=== PATIENT | male | born 1935 | race Caucasian/White ===

== ENCOUNTER 2017-10-30 15:13 | Inpatient (IN) | END 2017-10-31 17:38 | disposition home or self-care (01) | DRG 313 ==

== ENCOUNTER 2018-05-26 06:43 | Day surgery (SDC) | END 2018-05-26 07:30 | disposition home or self-care (01) ==

== ENCOUNTER 2018-06-10 12:43 | Observation (INO) | END 2018-06-11 18:14 | disposition home or self-care (01) ==

== ENCOUNTER 2018-06-17 10:16 | Emergency (ER) | END 2018-06-17 13:35 | disposition home or self-care (01) ==

== ENCOUNTER 2019-06-15 07:01 | Observation (INO) | payer MEDICARE, OTHER ==
[~2019-06-15] VITALS: Ht 167.6 cm; Wt 95.2 kg
[2019-06-15] VITALS (24 sets, daily range): BP systolic 128–162; BP diastolic 72–87; PULSE 59–61; RESP 14–28; Ht 167.6 cm; Wt 95.2 kg
[~2019-06-15 07:01] MED LIST: AMLO5TAB4 PO; ASPI-903 PO; CARV25TA79 PO; CEFAZOLIN 1 GM/50 ML (PMX) 50 ML IVPB ONE; CEPH500C PO; DIAZEPAM 5 MG TAB PO ONE; FINA5TAB4 PO; HYDR-3671 PO; HYDR-4011 PO; ISOS120T15 PO; RANI300C7 PO; RANO500T2 PO; SOD CHLORIDE 0.45% 1,000 ML IV SCH; TAMS-14 PO; WARF5TAB PO
[2019-06-15] MEDS ORDERED: POLYMYXIN/BACITRACIN 1L IRRIG ONE (07:25)
[2019-06-15] MEDS ORDERED: BUPIVACAINE 0.5% (SDV) 30 ML INJ ONE (07:32)
[2019-06-15] MEDS ORDERED: IODIXANOL LOCM 50 ML BTL ONE (07:32)
[2019-06-15] MEDS ORDERED: LIDOCAINE 1%/EPI (1:100,000) (MDV) 20 ML ONE (07:32)
[2019-06-15] MEDS ORDERED: SOD CHLORIDE 0.9% 500 ML ONE (07:32)
[2019-06-15] MEDS ORDERED: CEFAZOLIN 1 GM/50 ML (PMX) 50 ML IVPB ONE ×2 (07:32→07:35)
[2019-06-15] MEDS ORDERED: FENTAnyl 50 MCG/ML VIAL ONE (08:56)
[2019-06-15] MEDS ORDERED: PROPOFOL 20 ML ONE (08:56)
[2019-06-15] MEDS ORDERED: MIDAZOLAM 1 MG/ML 2 ML INJ ONE (08:56)
[2019-06-15] MEDS ORDERED: DIPHENHYDRAMINE 50 MG INJ IV PRN (10:00)
[2019-06-15] MEDS ORDERED: ONDANSETRON 4 MG INJ IV PRN ×2 (10:00→12:30)
[2019-06-15] MEDS ORDERED: FENTAnyl 50 MCG/ML VIAL IV PRN ×3 (10:00)
[2019-06-15] MEDS ORDERED: MEPERIDINE 25 MG INJ IV PRN (10:00)
[2019-06-15] MEDS ORDERED: LABETALOL HCL 20MG INJ IV PRN (10:00)
[2019-06-15] MEDS ORDERED: hydrALAzine 20 MG INJ IV PRN (10:00)
[2019-06-15] MEDS ORDERED: EPHEDrine 25 MG/5 ML SYG IV PRN (10:00)
[2019-06-15] MEDS ORDERED: METOCLOPRAMIDE 10 MG INJ IV PRN (10:00)
[2019-06-15] MEDS ORDERED: MIDAZOLAM 1 MG/ML 2 ML INJ IV PRN (10:00)
[2019-06-15] MEDS ORDERED: morphine 2 MG INJ IV PRN (10:30)
[2019-06-15] MEDS ORDERED: HYDROCODONE/APAP (5/325) TAB PO PRN ×4 (10:30→12:30)
[2019-06-15] MEDS ORDERED: ACETAMINOPHEN 325 MG TAB PO PRN (12:30)
[2019-06-15] MEDS ORDERED: NACL 0.9% 3 ML SYG IV SCH (12:30)
[2019-06-15] MEDS: CEPHALEXIN 500 MG CAP PO SCH (17:53)
[2019-06-15] MEDS: CEFAZOLIN 1 GM/50 ML (PMX) 50 ML IVPB SCH (20:34)
[2019-06-15] MEDS: ISOSORBIDE MONONITRATE(SR)60 MG TAB PO SCH (20:35)
[2019-06-15] MEDS: RANOLAZINE (SR) 500 MG TAB PO SCH (20:35)
[2019-06-15] MEDS: TAMSULOSIN (SR) 0.4 MG CAP PO SCH (20:36)
[2019-06-16 00:05] VITALS: BP 132/71; PULSE 61; RESP 18
[2019-06-16] MEDS: CEPHALEXIN 500 MG CAP PO SCH ×3 (00:12→13:01)
[2019-06-16 07:37] VITALS: BP 143/70; PULSE 59; RESP 18
[2019-06-16] MEDS: ISOSORBIDE MONONITRATE(SR)60 MG TAB PO SCH (08:50)
[2019-06-16] MEDS: TAMSULOSIN (SR) 0.4 MG CAP PO SCH (08:50)
[2019-06-16] MEDS: RANOLAZINE (SR) 500 MG TAB PO SCH (08:51)
[2019-06-16] MEDS: CEFAZOLIN 1 GM/50 ML (PMX) 50 ML IVPB SCH (08:52)
[2019-06-16] MEDS ORDERED: FINASTERIDE 5 MG TAB PO SCH (09:00)
[2019-06-16] MEDS ORDERED: RANITIDINE 150 MG TAB PO SCH (09:00)
[2019-06-16] MEDS ORDERED: ASPIRIN 81 MG TAB PO SCH (09:00)
[2019-06-16] MEDS ORDERED: AMLODIPINE 5 MG TAB PO SCH (09:00)
[2019-06-16] MEDS ORDERED: WARFARIN 5 MG TAB PO SCH (17:00)
[2019-06-17] MEDS ORDERED: ISOSORBIDE MONONITRATE(SR)60 MG TAB PO SCH (09:00)
== END 2019-06-16 14:23 | disposition home or self-care (01) ==
LOC: SDS 07:01 → REC 10:09 → MS1 12:24
PROVIDERS: ADMIT Internal Medicine Clinical Cardiac Electrophysiology; ATTEND Internal Medicine
DX: T82.128A Displacement of other cardiac electronic device, initial encounter (principal); I10 Essential (primary) hypertension; E78.00 Pure hypercholesterolemia, unspecified; E78.5 Hyperlipidemia, unspecified; I42.9 Cardiomyopathy, unspecified; I25.10 Atherosclerotic heart disease of native coronary artery without angina pectoris; Z95.5 Presence of coronary angioplasty implant and graft; Z86.718 Personal history of other venous thrombosis and embolism; Y83.8 Other surgical procedures as the cause of abnormal reaction of the patient, or of later complication, without mention of misadventure at the time of the procedure
CPT/HCPCS: 33223; 71045; 80048; 80053; 80061; 83735; 85025; 85610; 85730; 93005; 97162; 97167; G0378; J0690; J2250; J3010; J7040; 96365; Q9967